=== PATIENT | male | born 1990 | race Caucasian/White ===

== ENCOUNTER → 2024-04-12 | Outpatient (CLI) | payer OTHER | LOC: M SLEEP HO 10:23 | PROVIDERS: ATTEND Nurse Practitioner Family | DX: G47.33 Obstructive sleep apnea (adult) (pediatric) (principal) ==

== ENCOUNTER → 2024-04-27 | Outpatient (CLI) | payer OTHER ==
[2024-04-27 10:21] LABS: BASO # 0.1 10^3/uL (0.0-0.2); BASO % 0.7 % (0.0-1.0); EOS # 0.2 10^3/uL (0.0-0.5); EOS % 2.5 % (0.0-3.0); HEMATOCRIT 44.7 % (42.0-52.0); HEMOGLOBIN 14.8 g/dl (13.5-17.5); LYMPH # 1.8 10^3/uL (1.5-5.0); LYMPH % 21.7 % (24.0-44.0); MEAN CORPUSCULAR HEMOGLOBIN 25.9 pg (27.0-33.0); MEAN CORPUSCULAR HGB CONC 33.1 g/dl (32.0-36.5); MEAN CORPUSCULAR VOLUME 78.3 fl (80.0-96.0); MONO # 0.5 10^3/uL (0.0-0.8); MONO % 6.2 % (2.0-8.0); NEUTROPHILS # 5.6 10^3/uL (1.5-8.5); NEUTROPHILS % 67.9 % (36.0-66.0); PLATELET COUNT, AUTOMATED 362 10^3/uL (150-450); RED BLOOD COUNT 5.71 10^6/uL (4.30-6.10); WHITE BLOOD COUNT 8.3 10^3/uL (4.0-10.0)
[2024-04-27 10:27] LABS: ERYTHROCYTE SEDIMENTATION RATE 31 mm/hr (0-15)
[2024-04-27 10:49] LABS: ALBUMIN 3.7 G/DL (3.2-5.2); ALKALINE PHOSPHATASE 58 U/L (40-129); ALT/SGPT 39 U/L (7.0-40); AST/SGOT 32 U/L (<34); BILIRUBIN,TOTAL 0.3 MG/DL (0.3-1.2); BLOOD UREA NITROGEN 12 MG/DL (9-23); C REACTIVE PROTEIN QUANTITATIV 0.83 MG/DL (<1.0); CALCIUM LEVEL 9.4 MG/DL (8.5-10.1); CARBON DIOXIDE LEVEL 29 MMOL/L (20-31); CHLORIDE LEVEL 102 MMOL/L (98-107); CHOLESTEROL LEVEL 142 MG/DL (<200); CHOLESTEROL RISK RATIO 3.92 (<5); CREATININE FOR GFR 0.78 MG/DL (0.70-1.30); GLOMERULAR FILTRATION RATE > 60.0 (>60); GLUCOSE, FASTING 89 MG/DL (60-100); HDL CHOLESTEROL 36.2 MG/DL (>40); LDL CHOLESTEROL 50.6 MG/DL (<100); MAGNESIUM LEVEL 1.8 MG/DL (1.8-2.4); NON-HDL-C 105.8 MG/DL; POTASSIUM SERUM 4.5 MMOL/L (3.5-5.1); SODIUM LEVEL 138 MMOL/L (136-145); TOTAL PROTEIN 7.8 G/DL (5.7-8.2); TRIGLYCERIDES LEVEL 276 MG/DL (<150)
[2024-04-27 10:51] LABS: THYROID STIMULATING HORMONE 1.997 uIU/ML (0.55-4.78)
[2024-04-27 10:52] LABS: FREE T4 1.35 NG/DL (0.89-1.76)
== END ==
LOC: M LAB 09:17
PROVIDERS: ATTEND Nurse Practitioner Family
DX: I10 Essential (primary) hypertension (principal)

== ENCOUNTER → 2024-06-21 | Outpatient (CLI) | payer OTHER | LOC: M SLEEP 20:00 | PROVIDERS: ATTEND Physician Assistant | DX: G47.33 Obstructive sleep apnea (adult) (pediatric) (principal) ==